=== PATIENT | male | born 1965 | race Caucasian/White ===

== ENCOUNTER 2022-01-28 06:09 | Observation (INO) | payer OTHER ==
[2022-01-23 13:46] VITALS: BMI 43.0
[2022-01-28] MEDS ORDERED: Bupivacaine 0.25% 10 ML VIAL ONE ×2 (07:50→17:58)
[2022-01-28] MEDS ORDERED: Betamet Acet/Betamet Na Ph 30 MG/5 ML VIAL ONE ×2 (07:50→17:58)
[2022-01-28] MEDS ORDERED: Bacitracin Zinc Ointment 30 gm TUBE ONE ×2 (07:50→17:58)
[2022-01-28] MEDS ORDERED: HYDROcodone/Acetaminophen 5/325 mg Tablet PO PRN (08:42)
[2022-01-28] MEDS ORDERED: traMADol HCl 50 MG TAB PO PRN ×2 (08:42→20:56)
[2022-01-28] MEDS ORDERED: Acetaminophen 325 MG TAB PO PRN ×2 (08:42→20:56)
[2022-01-28] MEDS ORDERED: Ondansetron PF 4 MG/2 ML Vial IVP PRN ×2 (08:42→20:56)
[2022-01-28] MEDS ORDERED: PHARMACY TO RENALLY ADJUST ABX FS SCH (08:45)
[2022-01-28] MEDS ORDERED: TETANUS AND DIPHTHERIA TOX/PF 0.5 ML DISP.SYRIN IM SCH (08:45)
[2022-01-28 10:04] LABS: PTT 27.8 sec (22.9-36.1)
[2022-01-28 10:05] LABS: INR-International Normal Ratio 0.9; Prothrombin Time 12.6 sec (12.0-14.7)
[2022-01-28 10:06] LABS: ALT (SGPT) 48 U/L (8-55); AST (SGOT) 36 U/L (5-34); Albumin 4.1 g/dL (3.5-5.0); Alkaline Phosphatase 71 U/L (40-110); Anion Gap 11 mmol/L (10-20); BUN (Urea Nitrogen) 11 mg/dL (8.4-25.7); Bilirubin, Total 0.5 mg/dL (0.2-1.2); Calc. Creatinine Clearance 183 mL/min (70-130); Calcium 9.1 mg/dL (7.8-10.44); Carbon Dioxide 27 mmol/L (22-29); Chloride 104 mmol/L (98-107); Globulin 3.2 g/dL (2.4-3.5); Glucose 128 mg/dL (70-105); Potassium 4.3 mmol/L (3.5-5.1); Protein, Total 7.3 g/dL (6.0-8.3); Sodium 138 mmol/L (136-145)
[2022-01-28 11:57] LABS: Bacteria/HPF None Seen HPF (None Seen); Bilirubin Negative (Negative); Blood, Urine Negative (Negative); Clarity Clear (Clear); Glucose, Urine (Dipstick) Normal (Negative); Ketone, Urine Negative (Negative); Leukocyte Negative Leu/uL (Negative); Nitrite Negative (Negative); Protein, Urine (Dipstick) 10 mg/dL (Neg-Trace); RBC/HPF 0-3 HPF (0-3); Specific Gravity, Urine 1.023 (1.002-1.036); Squamous Epithelial None Seen HPF (0-3); Urobilinogen Normal mg/dL (Less than 2); WBC/HPF 0-3 HPF (0-3); pH, Urine 5.5 (5.0-9.0)
[2022-01-28] MEDS ORDERED: Diazepam 10 MG/2 ML SYRINGE IVP SCH (13:30)
[2022-01-28] MEDS ORDERED: Fentanyl 100 MCG/2 ML VIAL ONE ×4 (17:47→21:41)
[2022-01-28] MEDS ORDERED: Neomycin-Polymyxin 1 ML AMP ONE (17:58)
[2022-01-28] MEDS ORDERED: ePHEDrine 50 MG/ML VIAL ONE (18:46)
[2022-01-28] MEDS ORDERED: Rocuronium Bromide 10 MG/ML (10ML VIAL) ONE (18:46)
[2022-01-28] MEDS ORDERED: PROPOFOL 200 MG/20 ML VIAL ONE (18:46)
[2022-01-28] MEDS ORDERED: Lidocaine 1% PF 5 ML VIAL ONE (18:46)
[2022-01-28] MEDS ORDERED: Promethazine HCl 25 MG/ML VIAL IVPB PRN (20:48)
[2022-01-28] MEDS ORDERED: Promethazine HCl 25 MG/ML VIAL IM PRN ×2 (20:48→20:56)
[2022-01-28] MEDS ORDERED: Ondansetron HCl/PF 4 MG/2 ML Vial IVP PRN (20:48)
[2022-01-28] MEDS ORDERED: Morphine 4 MG/ML VIAL SLOW IVP PRN (20:56)
[2022-01-28] MEDS ORDERED: Milk Of Magnesia 30 ML UDCUP PO PRN (20:56)
[2022-01-28] MEDS ORDERED: Fentanyl 100 MCG/2 ML VIAL SLOW IVP PRN (20:56)
[2022-01-28] MEDS ORDERED: Vancomycin 1 GM in Premix Bag 1 BAG IVPB SCH (21:00)
[2022-01-28] MEDS ORDERED: Promethazine HCl 25 MG/ML VIAL ONE (21:41)
[2022-01-28] MEDS: Aspirin 81 mg Enteric Coated Tablet PO SCH ×3 (21:57→22:43)
[2022-01-28] MEDS ORDERED: Vancomycin HCl 1.5 GM in Sodium Chloride 0.9% 250 ML 300 ML IVPB SCH (22:00)
[2022-01-28] MEDS: Sodium Chloride 0.9% 100 ML IV SCH ×2 (22:01→23:40)
[2022-01-28] MEDS: Vancomycin 1.5 GRAM/300 ML BAG 1.5 GM in Premix Bag 1 BAG IVPB SCH (22:40)
[2022-01-28] MEDS: Pregabalin 75 MG CAP PO SCH (22:41)
[2022-01-29] MEDS: HYDROcodone/Acetaminophen 5/325 mg Tablet PO PRN ×2 (00:31→13:24)
[2022-01-29] MEDS: Sodium Chloride 0.9% 100 ML IV SCH ×12 (01:21→17:07)
[2022-01-29] MEDS: Vancomycin 1.5 GRAM/300 ML BAG 1.5 GM in Premix Bag 1 BAG IVPB SCH ×2 (05:46→13:24)
[2022-01-29] MEDS: Aspirin 81 mg Enteric Coated Tablet PO SCH ×2 (07:55→07:58)
[2022-01-29] MEDS: Pregabalin 75 MG CAP PO SCH (07:56)
[2022-01-29 16:00] VITALS: BP 134/73; TEMP 98.1
[2022-01-29] MEDS ORDERED: Atorvastatin Calcium 20 MG TAB PO SCH (21:00)
== END 2022-01-29 17:20 | disposition home or self-care (01) ==
LOC: SDC 06:09 → 2SW 08:42
PROVIDERS: ADMIT Orthopaedic Surgery Hand Surgery; ATTEND Orthopaedic Surgery Hand Surgery
PROC: 01N50ZZ Release Median Nerve, Open Approach (ICD-10-PCS; principal; 2022-01-29)
PROC: 01N40ZZ Release Ulnar Nerve, Open Approach (ICD-10-PCS; 2022-01-29)
DX: G56.22 Lesion of ulnar nerve, left upper limb (principal); G56.02 Carpal tunnel syndrome, left upper limb; I25.2 Old myocardial infarction; I25.10 Atherosclerotic heart disease of native coronary artery without angina pectoris; F17.220 Nicotine dependence, chewing tobacco, uncomplicated; J44.9 Chronic obstructive pulmonary disease, unspecified; N20.0 Calculus of kidney; K57.30 Diverticulosis of large intestine without perforation or abscess without bleeding; E66.9 Obesity, unspecified; Z68.41 Body mass index [BMI] 40.0-44.9, adult; Z79.899 Other long term (current) drug therapy; Z86.73 Personal history of transient ischemic attack (TIA), and cerebral infarction without residual deficits; Z88.5 Allergy status to narcotic agent; Z95.1 Presence of aortocoronary bypass graft
CPT/HCPCS: 36415; 71046; 78452; 80053; 81001; 85610; 85730; 93017; 96365; 96366; 96375; 96376; A9500; G0378; J0153; J0702; J2550; J2704; J3010; J3360; J3370; J3490; S0020

== ENCOUNTER 2022-02-13 18:02 | Emergency (ER) | payer OTHER, SELFPAY ==
[2022-02-13] MEDS ORDERED: HYDROcodone/Acetaminophen 5/325 mg Tablet ONE (18:35)
[2022-02-13 18:49] LABS: #Eosinphils 0.1 thou/uL (0.0-0.7); #Lymphocytes 2.1 thou/uL (1.20-3.40); #Monocytes 0.5 thou/uL (0.11-0.59); #Neutrophils 4.4 thou/uL (1.40-6.50); %Basophils 0.4 % (0.0-1.0); %Eosinophils 2.1 % (0.0-10.0); %Lymphocytes 29.4 % (21.0-51.0); %Monocytes 6.8 % (0.0-10.0); %Neutrophils 61.3 % (42.0-75.0); Hemoglobin 15.2 g/dL (14.0-18.0); Mean Corpuscular HGB CONC 33.2 g/dL (32.0-36.0); Mean Corpuscular Hemoglobin 30.2 pg (27.0-31.0); Mean Corpuscular Volume 90.9 fL (78.0-98.0); Mean Platelet Volume 6.7 fL (7.4-10.4); Platelet Count 275 thou/uL (130-400); RBC Distribution Width 12.2 % (11.5-14.5); Red Blood Cell (RBC) Count 5.03 mill/uL (4.70-6.10); White Blood Cell (WBC) Count 7.1 thou/uL (4.8-10.8)
[2022-02-13 19:15] LABS: ALT (SGPT) 38 U/L (8-55); AST (SGOT) 26 U/L (5-34); Albumin 3.9 g/dL (3.5-5.0); Alkaline Phosphatase 67 U/L (40-110); Anion Gap 15 mmol/L (10-20); BUN (Urea Nitrogen) 13 mg/dL (8.4-25.7); Bilirubin, Total 0.7 mg/dL (0.2-1.2); Calc. Creatinine Clearance 0 mL/min (70-130); Calcium 8.6 mg/dL (7.8-10.44); Carbon Dioxide 23 mmol/L (22-29); Chloride 104 mmol/L (98-107); Globulin 2.8 g/dL (2.4-3.5); Glucose 202 mg/dL (70-105); Potassium 3.9 mmol/L (3.5-5.1); Protein, Total 6.7 g/dL (6.0-8.3); Sodium 138 mmol/L (136-145)
[2022-02-13] MEDS ORDERED: Ketorolac Tromethamine 30 MG/ML VIAL ONE (19:24)
[2022-02-13] MEDS ORDERED: cefTRIAXone\\ROCEPHIN 1 GM VIAL ONE (20:09)
[2022-02-13] MEDS ORDERED: Lidocaine 1% PF 5 ML VIAL ONE (20:09)
[2022-02-13] MEDS ORDERED: Triple Antibiotic Oint 1 GM Packet ONE (20:20)
[2022-02-13] MEDS ORDERED: Enoxaparin Sodium 60 MG/0.6 ML SYRINGE ONE (20:40)
== END 2022-02-13 21:19 | disposition home or self-care (01) ==
LOC: ERS 18:02
DX: G89.18 Other acute postprocedural pain (principal); M79.642 Pain in left hand; J44.9 Chronic obstructive pulmonary disease, unspecified; F17.210 Nicotine dependence, cigarettes, uncomplicated; F17.220 Nicotine dependence, chewing tobacco, uncomplicated; I25.2 Old myocardial infarction; Z86.73 Personal history of transient ischemic attack (TIA), and cerebral infarction without residual deficits; Z87.442 Personal history of urinary calculi; Z87.19 Personal history of other diseases of the digestive system; Z79.899 Other long term (current) drug therapy
CPT/HCPCS: 36415; 80053; 85025; 85652; 86140; 96372; J0696; J1650; J1885